=== PATIENT | female | born 1990 | race Caucasian/White ===

== ENCOUNTER 2022-05-28 21:59 | Emergency (ER) | payer SELFPAY ==
--- NOTE | ~2022-05-28 | XR_ITS ---
EXAMINATION: XR chest 1V portable INDICATION: Tachycardia and fever TECHNIQUE: Portable AP chest at 0208 hours COMPARISON: None available FINDINGS: The lungs are free of acute opacities. No pleural effusion or pneumothorax. The cardiomedia stinal silhouette is normal. The visualized bones and soft tissues are unremarkable. IMPRESSION: 1. No acute cardiopulmonary abnormality. Reviewed, dictated and finalized at location B. [facility] [employer]IVENESS MANAGER
[2022-05-28 22:15] VITALS: BP 128/87; PULSE 118; RESP 14; TEMP 38.3; O2SAT 99
[2022-05-29 00:02] VITALS: BP 140/83; PULSE 112; RESP 20; TEMP 38.4; O2SAT 98
[2022-05-29 00:05] LABS: Influenza A QL RT-PCR Negative (Negative); Influenza B QL RT-PCR Negative (Negative); SARS-CoV-2 RNA PCR Negative
[2022-05-29 00:33] VITALS: BP 134/97; PULSE 114; RESP 22; TEMP 37.7; O2SAT 97
[2022-05-29 01:23] VITALS: BP 126/85; PULSE 117; RESP 18; O2SAT 98
--- NOTE | 2022-05-29 01:43 | ECG_ITS ---
Measurements Intervals [place] Rate: 87 P: 22 CA: 147 QRS: 7 QRSD: 98 T: 0 QT: 360 QTc: 434 Interpretive Statements SINUS RHYTHM BORDERLINE T WAVE ABNORMALITY- ANTERIOR LEADS BORDERLINE ECG NO PREVIOUS ECG AVAILABLE FOR COMPARISON Electronically Signed On 05-29-2022 6:53:06 [employer] by Sean Bhatt D.O.
[2022-05-29] MEDS: ACETAMINOPHEN 500 MG TABLET 1000 MG PO (02:02)
[2022-05-29] MEDS: IBUPROFEN 400 MG TABLET 800 MG PO (02:02)
[2022-05-29] MEDS: DEXAMETHASONE SOD PHOS INJ 4 MG/ML VIAL 12 MG IV PUSH (02:03)
[2022-05-29] MEDS: SODIUM CHLORIDE 0.9% IV 1,000 ML 999 ML IV CONT (02:04)
[2022-05-29] MEDS: ONDANSETRON INJ 4 MG/2 ML VIAL IV PUSH (02:04)
[2022-05-29] MEDS: SODIUM CHLORIDE 0.9% IV 2,000 ML 999 ML IV CONT (02:05)
[2022-05-29 02:13] LABS: Basophils Percent Auto 0.1 % (0.2-1.2); Hematocrit 40.2 % (37.0-47.0); Hemoglobin 13.6 g/dL (12.0-15.0); Immature Granulocyte Absolute 0.05 K/mm3 (0.00-0.031); Immature Granulocyte Percent A 0.6 % (0-0.5); Lymphocytes Absolute Auto 0.88 K/mm3 (0.9-3.2); Lymphocytes Percent Auto 9.9 % (18.3-44.2); Mean Corpuscular HGB Conc 33.8 g/dl (32-36); Mean Corpuscular Hemoglobin 29.1 pg (26-34); Mean Corpuscular Volume 86.1 fl (80-100); Mean Platelet Volume 9.6 fl (7.4-10.4); Monocytes Absolute Auto 0.8 K/mm3 (0.1-0.6); Monocytes Percent Auto 8.8 % (2.6-8.5); Neutrophils Absolute Auto 7.2 K/mm3 (1.3-6.7); Neutrophils Percent Auto 80.6 % (45.5-73.1); Platelet Count Result 302 k/mm3 (150-375); Red Blood Count 4.67 M/mm3 (4.2-5.4); Red Cell Distribution Width 12.5 % (11.5-14.5); White Blood Count 8.9 K/mm3 (4.5-10.0)
[2022-05-29 02:15] LABS: Appearance Urine Slightly Cloudy (Clear); Bilirubin Urine 2+ (Negative); Blood Urine Negative (Negative); Color Urine Amber (Yellow); Glucose Urine UA Negative (Negative); Ketones Urine 4+ mg/dL (Negative); Leukocyte Esterase Ur Negative LEU/UL (Negative); Nitrate Urine Negative (Negative); Protein Urine 2+ mg/dL (Negative); Specific Grav Ur >= 1.030 (1.001-1.035); Urobilinogen Urine 0.2 mg/dL (<2.0)
[2022-05-29 02:16] VITALS: BP 118/70; PULSE 106; RESP 18; O2SAT 98
[2022-05-29 02:17] LABS: Glucose Point of Care 99 mg/dl (65-105)
[2022-05-29 02:22] LABS: Anion Gap 16 mmol/L (8-16); Blood Urea Nitrogen 9 mg/dL (7-17); Calcium 8.7 mg/dL (8.4-10.2); Carbon Dioxide 24 mmol/L (22-30); Chloride 100 mmol/L (98-107); Estimated Glomerular Filt Rate > 60; Glucose 103 mg/dL (65-110); Magnesium 2.1 mg/dL (1.6-2.3); Potassium 3.5 mmol/L (3.4-5.0); Sodium 140 mmol/L (137-145)
[2022-05-29 02:25] LABS: Add Urine Microscopic? YES; Bacteria Urine Trace /hpf; Mucus Urine Heavy /lpf; Squamous Epithelial Cell Urine Occasional /hpf (Few); WBC Urine 0-3 /hpf
--- NOTE | 2022-05-29 03:27 | ED.GENADULT ---
HPI - General Adult General Chief complaint: Nausea/Vomiting/Diarrhea Stated complaint: vomiting Time Seen by Provider: 05/29/22 00:39 History of Present Illness HPI narrative: This is a healthy 31-year-old female presenting ED with chief complaint of nausea vomiting diarrhea x3 days. She also has a sore throat cough and congestion. she has not been able to tolerate food or water for several days. She was seen at an urgent care who swabbed her throat for strep which was negative. They then treated her with a shot of penicillin. She went home and was still nauseous and came to emergency department for evaluation. The patient denies fever, chills, chest pain, difficulty breathing, abdominal pain. She does feel very dehydrated. Related Data Allergies Allergy/AdvReac Type Severity Reaction Status Date / Time No Known Allergies Allergy Verified 05/29/22 02:01 Review of Systems Review of Systems: CONSTITUTIONAL: Denies night sweats. EYES: No eye pain ENT: Denies rhinorrhea CARDIOVASCULAR: Denies palpitations RESPIRATORY: Denies hemoptysis GASTROINTESTINAL: Denies hematemesis GENITOURINARY: Denies hematuria. SKIN: Denies rash MUSCULOSKELETAL: Denies myalgia. NEUROLOGIC: Denies weakness. PSYCHIATRIC: Denies delusions Exam Narrative: APPEARANCE: No apparent distress. patient is wearing blue tinted glasses Head: atraumatic. mild erythema of the posterior oropharynx with no exudates, or swelling of the uvula or tonsils EYES: EOMI, NOSE: Atraumatic NECK: Trachea midline RESPIRATORY: No increased rate of breathing, clear to auscultation bilaterally CARDIOVASCULAR: tachycardic ABDOMINAL: Non-distended, soft nontender with no guarding or rebound MUSCULOSKELETAl: No obvious deformities NEURO: Alert. Moving 4/4 extremities SKIN:: Warm, dry. Normal color PSYCHIATRIC: Normal affect Course Vital Signs Vital signs: Vital Signs Temperature 100.9 F H 05/28/22 22:15 Pulse Rate 118 H 05/28/22 22:15 Respiratory Rate 14 05/28/22 22:15 Blood Pressure 128/87 05/28/22 22:15 Pulse Oximetry 99 05/28/22 22:15 Oxygen Delivery Room Air 05/28/22 22:15 Temperature 99.8 F H 05/29/22 00:33 Pulse Rate 106 H 05/29/22 02:16 Respiratory Rate 18 05/29/22 02:16 Blood Pressure 118/70 05/29/22 02:16 Pulse Oximetry 98 05/29/22 02:16 Oxygen Delivery Room Air 05/29/22 01:23 Medical Decision Making MDM Narrative Medical decision making narrative: this is a 31-year-old presenting with 3 days of nausea and vomiting. The patient is febrile and tachycardic on exam. She will be tested for COVID and flu. She was already tested for strep and treated at her urgent care. She will be given 2 L of fluid, Motrin Tylenol. she will be given dexamethasone for sore throat. CBC was within normal limits. BMP was unremarkable. Urinalysis did not indicate UTI but was concentrated which is consistent with dehydration. COVID, flu are negative. Chest x-ray as interpreted by myself showed no acute cardiopulmonary process. On re-evaluation patient's heart rate had dropped down to the 80s. She has been able to tolerate p.o.. She feels much better and would like to go home. She will be given a dose of Zofran before she leaves. Patient will be given prescriptions for Motrin, Tylenol and Zofran. Vital Signs Vital Signs: Vital Signs Temperature 100.9 F H 05/28/22 22:15 Pulse Rate 118 H 05/28/22 22:15 Respiratory Rate 14 05/28/22 22:15 Blood Pressure 128/87 05/28/22 22:15 Pulse Oximetry 99 05/28/22 22:15 Oxygen Delivery Room Air 05/28/22 22:15 Temperature 99.8 F H 05/29/22 00:33 Pulse Rate 106 H 05/29/22 02:16 Respiratory Rate 18 05/29/22 02:16 Blood Pressure 118/70 05/29/22 02:16 Pulse Oximetry 98 05/29/22 02:16 Oxygen Delivery Room Air 05/29/22 01:23 Lab Data Result diagrams: 05/29/22 02:06 05/29/22 02:06 Labs: Lab Results
== END 2022-05-29 04:42 | disposition home or self-care (01) ==
PROVIDERS: Emergency Provider Emergency Medicine
DX: B34.9 Viral infection, unspecified (principal); E86.0 Dehydration; R50.9 Fever, unspecified; J02.9 Acute pharyngitis, unspecified; R11.2 Nausea with vomiting, unspecified; Z20.822 Contact with and (suspected) exposure to COVID-19
CPT/HCPCS: 36415; 71045; 80048; 81001; 81025; 82948; 83735; 85025; 87502; 93005; 96361; 96374; 96375; 99284; A9270; J1100; J2405; J7030; U0003; U0005